=== PATIENT | male | born 1940 | race Caucasian/White ===

== ENCOUNTER 2016-12-07 19:38 | Emergency (ER) | payer MEDICARE ==
[2016-12-07 20:25] VITALS: BP 154/83
[2016-12-07] MEDS ORDERED: ceFAZolin 1 GM VIAL(*) 1 GM in NS 0.9% 50 ML* 50 ML IVPB ONE (21:12)
[2016-12-07] MEDS ORDERED: Tetan/Diph/Pertus SYR(Tdap)* 0.5 ML SYR(BOOSTRIX) use SYR IM ONE (21:12)
[2016-12-07] MEDS ORDERED: Lidocaine 2% PF * 5 ML VIAL INJ ONE (21:20)
--- NOTE | 2016-12-07 21:27 | RAD ---
Indication: Left fifth finger injury. 3 views of left fifth digit demonstrates fracture of the distal tuft of the distal phalanx with mild distraction and displacement. IMPRESSION: Fracture distal tuft fifth digit with slight displacement and distraction of the fracture fragments.
[2016-12-07] MEDS ORDERED: Acetaminophen TAB* 325 MG PO ONE (21:34)
[2016-12-07] MEDS ORDERED: ceFAZolin 1 GM VIAL(*) ONE (21:42)
--- NOTE | 2016-12-07 23:08 | UC ---
Laceration HPI - HPI Summary HPI Summary: 1897 LEFT FIFTH FINGER CAUGHT IN WOOD SPLITTER, SIGNIFICANT (OF DISTAL FINGER) LACERATION TO SAME. TETANUS UNKNOWN. - History Of Current Complaint Hx Obtained From: Patient Laceration Location: Finger Mechanism Of Injury: Sharp Trauma Onset/Duration: Sudden Onset, Lasting Hours, Still Present Severity: Severe Pain Intensity: 0 Pain Scale Used: 0-10 Numeric Aggravating Factors: Nothing Related History: Dominant Hand Right <Gerhard Almazan - Last Filed: 12/07/16 23:02> <Susana Rodriguez - Last Filed: 12/08/16 08:28> - History Of Current Complaint Chief Complaint: UCLaceration Stated Complaint: FINGER LAC Time Seen by Provider: 12/07/16 20:28 - Allergies/Home Medications Allergies/Adverse Reactions: Allergies Allergy/AdvReac Type Severity Reaction Status Date / Time No Known Allergies Allergy Verified 12/07/16 20:25 PMH/Surg Hx/FS Hx/Imm Hx Previously Healthy: Yes - Surgical History Surgical History: Yes Surgery Procedure, Year, and Place: rt, lt shoulder, appendectomy, carpal tunnel , rt knee, right foot - Family History Known Family History: Negative: Blood Disorder - Social History Occupation: Retired Lives: With Family Alcohol Use: None Substance Use Type: None Smoking Status (MU): Former Smoker - Immunization History Most Recent Influenza Vaccination: Most Recent Tetanus Shot: UNKNOWN <Gerhard Almazan - Last Filed: 12/07/16 23:02> Review of Systems Constitutional: Negative Skin: Other - LACERATION LEFT FIFTH FINGER Eyes: Negative ENT: Negative Respiratory: Negative Cardiovascular: Negative Gastrointestinal: Negative Genitourinary: Negative Motor: Negative Neurovascular: Negative Musculoskeletal: Arthralgia, Myalgia Neurological: Negative Psychological: Negative All Other Systems Reviewed And Are Negative: Yes <Gerhard Almazan - Last Filed: 12/07/16 23:02> Physical Exam Triage Information Reviewed: Yes Appearance: Well-Appearing, No Pain Distress, Well-Nourished Vital Signs: Initial Vital Signs Temp 97.8 F 12/07/16 20:22 Pulse 70 12/07/16 20:22 Resp 18 12/07/16 20:22 BP 154/83 12/07/16 20:22 Pulse Ox 98 12/07/16 20:22 Vital Signs Reviewed: Yes Eye Exam: Normal ENT Exam: Normal ENT: Positive: Normal ENT inspection, TMs normal Dental Exam: Normal Neck exam: Normal Neck: Positive: Supple, Nontender Respiratory Exam: Normal Respiratory: Positive: Chest non-tender, Lungs clear, Normal breath sounds, No respiratory distress Cardiovascular Exam: Normal Cardiovascular: Positive: RRR, No Murmur, Pulses Normal Abdominal Exam: Normal Musculoskeletal: Positive: ROM Intact, No Edema, Other: Neurological Exam: Normal Psychological Exam: Normal Skin: Positive: Other - LACERATION OF LEFT FIFTH FINGER <Gerhard Almazan - Last Filed: 12/07/16 23:02> Vital Signs: Initial Vital Signs Temp 97.8 F 12/07/16 20:22 Pulse 70 12/07/16 20:22 Resp 18 12/07/16 20:22 BP 154/83 12/07/16 20:22 Pulse Ox 98 12/07/16 20:22 <Susana Rodriguez - Last Filed: 12/08/16 08:28> Laceration Repair - Laceration Repair 1 Description: Irregular Laceration Size After Repair: Length (cm) - 4.5, Width (mm) - 8, Depth (mm) - 8 Type Injection: Digital Anesthesia Used: 2.0% Lido Cleansing Completed Via Routine Prep: Yes Irrigation With Pressure Irrigation Device: Yes Closure Material: Sutures - 7 X 4-0 Closure Method: Single Layer Suture Of: Skin, SQ Suture Type: Prolene <Gerhard Almazan - Last Filed: 12/07/16 23:02> Diagnostics - Laboratory Diagnostic Studies Completed/Ordered: FINGER XRAY, TUFT FRACTURE OF DISTAL LEFT FIFTH FINGER WITH FRACTURE FRAGMENTS <Gerhard Almazan - Last Filed: 12/07/16 23:02> Laceration Course/Dx - Differential Dx - Laceration/Wound Provider Diagnoses: OPEN TUFT FRACTURE OF LEFT FIFTH FINGER WITH REPAIR - Physician Notification/Consults Discussed Patient Care With: Nik Daley - ADVISED TO IRRIGATE, REPAIR LACERATION, AND ADMINISTER TETANUS AND IV ABX; Time Discussed With Above Provider: 21:15 - ORTHO TO SEE PATIRENATA TOMORROW Instructed by Provider To: Have Pt Call For Appt. - TOMORROW <Gerhard Almazan - Last Filed: 12/07/16 23:02> Discharge <Gerhard Almazan - Last Filed: 12/07/16 23:02> <Susana Rodriguez - Last Filed: 12/08/16 08:28> - Discharge Plan Condition: Stable Disposition: HOME Prescriptions: Cephalexin CAP* [Keflex CAP*] 500 mg PO QID #40 cap Patient Education Materials: Finger Fracture (ED), Finger Laceration (ED) Referrals: Nik Daley MD [Medical Doctor] - 1 Day Felicitas Neff MD [Primary Care Provider] - Additional Instructions: PLEASE CALL DR DALEY SERVICE TOMORROW MORNING Attestation Statement User Type: Provider - I was available for consult. This patient was seen by the STEVE. The patient was not presented to, seen by, or examined by me. -Ljj <Susana Rodriguez - Last Filed: 12/08/16 08:28>
== END 2016-12-07 22:45 | disposition home or self-care (01) ==
LOC: UCEAST 19:38
DX: S62.636B Displaced fracture of distal phalanx of right little finger, initial encounter for open fracture (principal); S61.217A Laceration without foreign body of left little finger without damage to nail, initial encounter; W31.2XXA Contact with powered woodworking and forming machines, initial encounter; Y93.89 Activity, other specified; Y92.9 Unspecified place or not applicable; Z87.891 Personal history of nicotine dependence
CPT/HCPCS: 12002; 13132; 73140; 90471; 90715; 96365; 99212; A9270-GY; G0463; J0690

== ENCOUNTER 2017-03-08 10:12 | Day surgery (SDC) | payer MEDICARE ==
--- NOTE | 2017-02-28 12:59 | HP ---
HISTORY AND PHYSICAL: DATE OF ADMISSION: 03/08/17 He is entering [facility] on 03/08/17 for left knee arthroscopic surgery. CHIEF COMPLAINT: Left knee pain and locking and catching. HISTORY OF PRESENT ILLNESS: The patient has had problems with his knee over the past year. He has had cortisone injections and continued problems. He is working full-time. He is walking 1 to 2 blocks only and having difficulty with stairs. He is admitted now for left knee arthroscopic surgery for loose bodies and meniscal tearing and arthritis. PAST MEDICAL HISTORY: He is cared for by Dr. Neff. He had a stress test in 2012 that was satisfactory. He has not had a heart attack. He has had a history of some chest pain, which is not felt to be cardiac. e is okay to his kidneys, okay to stomach, passing his urine without difficulty. No history of hepatitis. No history of blood transfusions or exposures to meds. He can walk up one flight of stairs without chest pain, without shortness of breath. No past cancers. ALLERGIES: He has no allergies. SOCIAL HISTORY: No smoking. He drinks seldom. PHYSICAL EXAMINATION GENERAL: Well nourished, well developed. His walking gait, no marked limp and he has varus of the left knee and incomplete extension of the left knee with walking. He is able to walk on his toes and his heels. VITAL SIGNS: Height 70 inches, weight 223, blood pressure 128/74. HEENT: Head is NC/AT. The cranial nerves are grossly intact. LUNGS: Clear bilaterally. HEART: Regular. S1 and S2 normal. No murmurs or gallops. ABDOMEN: Round, soft, nontender. No organomegaly appreciated. EXTREMITIES: The left posterior tibial pulses 2+. The left knee has extension -4, flexion 110. There is some varus. There is some tenderness to the medial joint line. MCL and LCL were stable. Isis and posterior drawer are normal. The thigh and calf are soft. There is no swelling of the left leg, ankle, and foot. DIAGNOSTIC STUDIES/LAB DATA: Radiographs of left knee show medial joint space narrowing, extensive chondrocalcinosis, lateral view shows one fragment consistent with a loose body anterior joint. IMPRESSION: Left knee medial and patellar arthritis, medial meniscal tearing, loose body and chondrocalcinosis. PLAN: Left knee arthroscopic surgery. Risks and complications were reviewed with him in the office and his questions were answered. [id number]/[facility] #: [id number] SULMA
[~2017-03-08 10:12] MED LIST: Buffered Lidocaine 0.9% SYRIN* 5 ML/SYR SYRINGE INTRADERM ONE; Dexamethasone IV* 4 MG/ML 1 ML (4 MG) IV SLOW PU ONE; Famotidine IV* 10 MG/ML 2 ML (20 mg) IV ONE
[2017-03-08] MEDS ORDERED: Buffered Lidocaine 0.9% SYRIN* 5 ML/SYR SYRINGE ONE (10:18)
[2017-03-08] MEDS ORDERED: Famotidine IV* 10 MG/ML 2 ML (20 mg) ONE (10:18)
[2017-03-08] MEDS ORDERED: Dexamethasone IV* 4 MG/ML 1 ML (4 MG) ONE (10:18)
[2017-03-08] MEDS ORDERED: ceFAZolin 2 GM PREMIX (*) 2 GM/50 ML BAG IVPB ONE (10:18)
[2017-03-08] MEDS ORDERED: Midazolam* 1 MG/ML 2 ML VIAL (2 MG) ONE (11:49)
[2017-03-08] MEDS ORDERED: Phenylephrine IV* 40 MCG/ML 10 ML SYRINGE ONE (11:51)
[2017-03-08] MEDS ORDERED: oxyCODONE/Acetamin 5/325 MG* TAB PO PRN (12:21)
[2017-03-08] MEDS ORDERED: Ondansetron INJ* 2 MG/ML VIAL IV PRN (12:21)
[2017-03-08] MEDS ORDERED: fentaNYL* 50 MCG/ML 2 ML VIAL (100 MCG VIAL) IV PRN (12:21)
[2017-03-08] MEDS ORDERED: Ondansetron INJ* 2 MG/ML VIAL ONE (12:36)
[2017-03-08] MEDS ORDERED: Ketorolac INJ* 30 MG/ML 1 ML VIAL ONE (12:36)
[2017-03-08] MEDS ORDERED: Chloroprocaine 2%* 20 ML VIAL ONE (12:36)
[2017-03-08] MEDS ORDERED: Propofol* 10 MG/ML 20 ML BTL IV PUSH ONE (12:36)
[2017-03-08] MEDS ORDERED: Lidocaine 1.5% EPI 1:200,000* 30 ML SDV ONE (12:56)
[2017-03-08 14:46] VITALS: BP 149/83
--- NOTE | 2017-03-09 03:44 | OP ---
CC: Dr. Neff * DATE OF OPERATION: 03/08/17 - [facility] DATE OF : 44 SURGICAL CARE: Left knee. SURGEON: Fabrizio Tellez MD. AREA FIELD MANAGER: LORRIE Messina. ANESTHESIOLOGIST: Dr. Theodore Dee. ANESTHESIA: Spinal, IV sedation. PRE-OP DIAGNOSIS: Tear of medial meniscus and lateral meniscus, chondrocalcinosis of left knee, arthritis of left knee, and possible loose bodies. POST-OP DIAGNOSIS: Tear of medial meniscus and lateral meniscus, chondrocalcinosis of left knee, arthritis of left knee. There were no discrete loose bodies. OPERATIVE PROCEDURE: Left knee medial and lateral meniscectomies and limited synovectomy. COMPLICATIONS: There were no complications. DRAINS: There were no drains. TOURNIQUET: Tourniquet control was utilized on the left thigh. ESTIMATED BLOOD LOSS: 80 mL. CONDITION: Stable, to the recovery room. OPERATIVE INDICATIONS: Left knee pain with locking and catching. It has been no longer responsive to nonoperative care and the patient has the diagnoses listed in the preoperative diagnoses. DESCRIPTION OF PROCEDURE: The patient was brought to the operating room and placed on the operating room table in a supine position. Following the administration of the anesthetic, he was returned to the supine position. The left proximal thigh was wrapped with a tourniquet. The knee was given a preliminary Chlorhexidine prep and then a Chlora-Prep from the tourniquet to the foot. After prepping, draping, and sealing off, we did our universal protocol time-out confirming Wallyland Lenny and a plan for left knee arthroscopic surgery. We all agreed and we proceeded. The leg was exsanguinated, the tourniquet on the thigh was elevated to 275. The knee was set up for arthroscopy with the arthroscope lateral to the patellar tendon, probe and operating instruments medial to the patellar tendon, and an inflow catheter superomedial to the patella. The initial irrigation of the joint showed fibrinous and cartilaginous debris. On survey of the joint, the patellofemoral arthritis was marked and very thin and the patella was cobblestoned and basically bone. There were pouches of synovitis with crystals in it on either side of the patellofemoral joint. The lateral meniscus was torn up in a complex fashion and interstitially, anteriorly and mid, going to posterior. It was soft and it was torn, it was friable, and the crystal disease , chondrocalcinosis, had a lot to do with this. There was an anterior synovitis where the crystals were interwoven with the anterior synovium, almost loose bodies, and on the lateral knee x-ray, I think, this is part of what I thought was certainly possibly loose body in the left knee anteriorly. The medial meniscus was also torn up anteriorly and mid, with extensive chondrocalcinosis and degeneration and friability. Posteriorly, the meniscus was more intact, but punctate crystals on the meniscus posteriorly. The ACL had some swelling. The PCL was satisfactory. The medial femoral condyle, thinning and yellowing of the cartilage. Medial tibial plateau, some of the cartilage was gone, mid plateau, underneath the meniscus. The lateral femoral condyle, overall some cartilage yellowing and thinning, but no need for surgical care there. There was osteophyte on the lateral femoral condyle, seen in from the lateral gutter, and the lateral tibial plateau had wear and tear as well. Once the pathology was evident, I proceeded with the partial medial and lateral meniscectomies. The lateral was anterior mid and going to the anterior half of the posterior meniscus as well, and the medial was anterior and mid. The anterior synovectomy was anterior to the ACL and anterior to both menisci. Once the surgical care was complete, final photographs were obtained. The knee was irrigated with another 4 L of saline irrigation solution, then emptied, then instilled with 1.5% Marcaine with epinephrine, 28 to 30 mL. The skin portals were closed with interrupted 3-0 Surgipro and a dressing applied after washing and drying with Betadine-soaked release sterile gauze, sterile Webril, cryotherapy cuff, ABD pads, and a 6-inch Ruben bandage loosely applied. The patient was returned to the recovery room in stable and satisfactory condition, having tolerated the procedure very well. [id number]/[facility] #: [id number] SULMA
== END 2017-03-08 15:17 | disposition home or self-care (01) ==
LOC: OR 10:12
PROVIDERS: ATTEND Orthopaedic Surgery
DX: M23.332 Other meniscus derangements, other medial meniscus, left knee (principal); M23.362 Other meniscus derangements, other lateral meniscus, left knee; M11.262 Other chondrocalcinosis, left knee; M17.12 Unilateral primary osteoarthritis, left knee; M65.862 Other synovitis and tenosynovitis, left lower leg; M25.762 Osteophyte, left knee; I10 Essential (primary) hypertension; G47.33 Obstructive sleep apnea (adult) (pediatric)
CPT/HCPCS: 88304; J0690; J1100; J1885; J2250; J2400; J2405; J2704